=== PATIENT | female | born 1995 | race Caucasian/White ===

== ENCOUNTER → 2017-09-29 | Outpatient (CLI) | payer BC ==
[~2017-09-29] MED LIST: ADAP0.1C5 EXT; AZEL15GE EXT; BCPILLS PO; DOXY100T17 PO; MULT-506 PO; SULF800T23 PO
== END | disposition home or self-care (01) ==
LOC: C.LAB 12:49
PROVIDERS: ATTEND Registered Nurse
DX: Z13.6 Encounter for screening for cardiovascular disorders (principal)